=== PATIENT | female | born 1950 | race African-American/Black ===

== ENCOUNTER 2017-02-02 11:53 | Emergency (ER) | payer MEDICARE, OTHER ==
[~2017-02-02 11:53] MED LIST: ACET500CAP PO; AMOXIL500 MG PO; ASAB PO; ASAEC PO; B COMPLETE PO; CALTRA600D PO; CAT1 PO; COGEN1 PO; CONSTULOSE PO; COZAAR100 MG PO; D100 PO; DEPAKOT500 PO; ELIQUIS 5 MG TAB5 MG PO; ESKALITH PO; EUCERIN LOTION TOP; FIBERCON PO; FOLBIC PO; INDE120LA PO; INNOPRAN XL120 MG PO; KCL20UDL PO; KDUR20 PO; KLOR-CON M2020 MEQ PO; L20 PO; L40 PO; LAMICTAL10 PO; LAMICTAL200 MG PO; LEVOTHROID137 MCG PO; LEVOTHYROXIN137 MCG PO; LIPITOR40 PO; LIPITOR80 MG PO; LITHOBID3 PO; LOTENSIN HCT1 TA2 PO; LOTRIMIN AF21 EX; LOTRIMIN AF21 TOP; MICATIN TOP; MICROZIDE PO; MIRALAXPKT PO; NAP375 PO; NICODERM C14 MG/24 H TOP; NORV10 PO; PREV30 PO; PRILO PO; PRILOSEC40 MG PO; RISP2 PO; RISP4 PO; SEROQUEL200 MG PO; SEROQUEL400 MG PO; SURBEX-T1 TAB PO; SYNTHROID137 MCG PO; TOLNAFTATE 1% TOP; TOTAL B PO; TRAZ100 PO; VITAMIN D31000 UNIT PO; ZOFRAN4 PO; [UNRECOGNIZED DRUG - OTHER]; [UNRECOGNIZED DRUG - OTHER] MT; [UNRECOGNIZED DRUG - OTHER] PO
[2017-02-02 12:13] LABS: HEMATOCRIT 37.2 % (36.0-48.0); HEMOGLOBIN 11.7 g/dL (12.0-16.0); MEAN CORPUS HGB CONC 31.5 g/dL (32.0-36.0); MEAN CORPUSCULAR HEMOGLOB 28.3 pg (26.0-34.0); MEAN CORPUSCULAR VOLUME 89.9 fL (80-100); MEAN PLATELET VOLUME 8.2 fL (9.2-13.0); PLATELET COUNT 217 10/3/uL (150-400); RBC DISTRIBUTION WIDTH 14.4 % (12.0-16.0); RED CELL COUNT 4.14 10/6/uL (4.0-5.6)
[2017-02-02 12:19] LABS: ASCORBIC ACID (UR NOT ORDER) 40 (NEG); BILIRUBIN, URINE NEGATIVE (NEG); ER URINALYSIS TAT 0 Hrs 10 Mins; KETONE, URINE NEGATIVE (NEG); LEUKOCYTE ESTERASE(NOT OR NEG (NEG); NITRITE (URINE) NEG (NEG); WBC (NOT ORDERED) (RFLEX) 3 (0-5)
[2017-02-02 12:22] LABS: PROTIME (NOT ORD) 13.1 SEC (12.0-14.5)
[2017-02-02 12:29] LABS: A/G RATIO 1.1 (0.7-1.9); ALBUMIN 3.6 G/DL (3.5-5.0); CALCIUM, SERUM 11.7 MG/DL (8.5-10.4); CHLORIDE, SERUM 108 MMOL/L (96-112); CO2 (CARBON DIOXIDE) 27 MMOL/L (24-34); CREATININE 0.93 MG/DL (0.55-1.02); GFR AFRICAN AMERICAN 74 ML/MIN (>=60); GFR NON AFRICAN AMERICAN 64 ML/MIN (>=60); GLOBULIN 3.3 G/DL (2.5-4.1); GLUCOSE, SERUM 87 MG/DL (60-99); POTASSIUM, SERUM 3.7 MMOL/L (3.5-5.3); SGOT(AST) 18 U/L (5-40); SGPT(ALT) 19 U/L (5-65); SODIUM, SERUM 142 MMOL/L (135-148); TOTAL BILIRUBIN 0.2 MG/DL (0-1.2); TOTAL PROTEIN 6.9 G/DL (6.0-8.5)
[2017-02-02 12:30] LABS: ALKALINE PHOSPHATASE 156 U/L (45-117); BUN (BLOOD UREA NITROGEN) 7 MG/DL (6-23)
[2017-02-02 12:34] LABS: BAND NEUTROPHILS 1 %; LYMPHOCYTES 36 %; LYMPHOCYTES ABSOLUTE (CALC) 2.16 10/3/uL (0.67-4.30); MONOCYTES 6 %; MONOCYTES ABSOLUTE (CALC) 0.36 10/3/uL (0.21-1.20); NEUTROPHILS ABSOLUTE (CALC) 3.48 10/3/uL (2.02-8.40); PLATELET ESTIMATE ADQ (ADEQUATE); SEGMENTED NEUTROPHIL (0) 57 %; TOTAL NUCLEATED CELLS 100
[2017-02-02 12:38] LABS: BURR CELLS 1+ (3-10/OIF) (0-2/OIF); OVALOCYTES 1+ (3-10/OIF) (0-2/OIF); TEARDROP SHAPED RBCS FEW (3-10/OIF)
[2017-02-02 12:40] LABS: SCHISTOCYTES FEW (3-10/OIF)
== END 2017-02-02 14:41 | disposition home or self-care (01) ==
LOC: ER 11:53
PROVIDERS: Nurse Practitioner Family
DX: M54.5 Low back pain (principal); I10 Essential (primary) hypertension; K21.9 Gastro-esophageal reflux disease without esophagitis; F32.9 Major depressive disorder, single episode, unspecified; Z79.82 Long term (current) use of aspirin; Z79.899 Other long term (current) drug therapy; W19.XXXA Unspecified fall, initial encounter
CPT/HCPCS: 72100; 72114; 72220; 80053; 81001; 85007; 85027; 85610; 85730; 93005; 99285